=== PATIENT | male | born 1980 | race Caucasian/White ===

== ENCOUNTER 2019-08-24 17:04 | Emergency (ER) | payer MEDICAID ==
[~2019-08-24] VITALS: Ht 182.9 cm; Wt 83.0 kg
[2019-08-24] MEDS ORDERED: normal saline 1000ML IV soln IV ONE (18:35)
[2019-08-24] MEDS ORDERED: acetaminophen 325mg tablet PO STA (18:35)
[2019-08-24] MEDS ORDERED: clindamycin 600mg/D5W 50ml 50 ML IV ONE (18:40)
[2019-08-24 19:15] LABS: BASOPHILS % (AUTO) 0.2 % (0-1); EOSINOPHILS # (AUTO) 0.1 X10'3 (0-0.9); EOSINOPHILS % (AUTO) 0.5 % (0-6); HEMATOCRIT 39.2 % (42.0-52.0); HEMOGLOBIN 13.2 g/dl (14.0-17.9); LYMPHOCYTES % (AUTO) 12.1 % (21-51); MEAN CORPUSCULAR HEMOGLOBIN 28.9 PG (27.0-31.0); MEAN CORPUSCULAR HGB CONC 33.7 g/dL (33.0-36.5); MEAN CORPUSCULAR VOLUME 85.7 FL (78-98); MEAN PLATELET VOLUME 8.2 FL (7.4-10.4); MONOCYTES # (AUTO) 1.3 X10'3 (0-0.9); NEUTROPHILS # (AUTO) 12.8 X10'3 (1.8-7.7); NEUTROPHILS % (AUTO) 79.2 % (42-75); PLATELET COUNT 207 X10'3 (140-440); RED BLOOD COUNT 4.58 X10'6 (4.70-6.10); RED CELL DISTRIBUTION WIDTH 13.2 % (11.5-14.5); WHITE BLOOD COUNT 16.2 X10'3 (4.5-11.0)
[2019-08-24 19:25] LABS: PARTIAL THROMBOPLASTIN TIME 27 SECONDS (22-32)
[2019-08-24 19:29] LABS: CLARITY,URINE CLEAR (Clear); COLOR,URINE YELLOW (Yellow); GLUCOSE, URINE NEGATIVE (Neg); KETONES,URINE TRACE mg/dl (Neg); LEUKOCYTE ESTERASE ,URINE NEGATIVE (Neg); NITRITES, URINE NEGATIVE (Neg); OCCULT BLOOD,URINE NEGATIVE (Neg); PH,URINE 6.5 (4.8-8.0); PROTEIN,URINE TRACE mg/dl (Neg)
[2019-08-24] MEDS ORDERED: iohexol 300mg/ml 100ml inj. ONE (19:34)
[2019-08-24 19:39] LABS: UA COLLECTION TYPE CLN CATCH MIDSTREAM
[2019-08-24 19:40] LABS: ALANINE AMINOTRANSFERASE 26 U/L (12-78); ALBUMIN 3.3 G/DL (3.4-5.0); ALBUMIN/GLOBULIN RATIO 0.8 (1.1-1.5); ALKALINE PHOSPHATASE 77 IU/L (46-116); ANION GAP 10 (8-16); ASPARTATE AMINO TRANSFERASE 17 U/L (10-37); BILIRUBIN,TOTAL 0.7 MG/DL (0.1-1.0); BLOOD UREA NITROGEN 7 MG/DL (7-18); BUN/CREATININE RATIO 7.5 (5.4-32.0); CALCIUM 8.9 MG/DL (8.5-10.1); CHLORIDE 103 MMOL/L (99-107); CREATININE 0.93 MG/DL (0.60-1.10); GLUCOSE 105 MG/DL (70-104); POTASSIUM 4.1 MMOL/L (3.5-5.1); SODIUM 138 MMOL/L (135-145); TOTAL CARBON DIOXIDE 25.3 MMOL/L (24-32); TOTAL PROTEIN 7.6 G/DL (6.4-8.2); eGFR 90 ML/MIN
[2019-08-24 19:50] LABS: BACTERIA,URINE NONE SEEN /HPF (Neg); HYALINE CASTS 0-3 /LPF (NEGATIVE); MUCUS STRANDS FEW /LPF (Neg); RBC,URINE NONE SEEN /HPF (0-2); SQUAMOUS EPITHELIAL CELL,UR FEW /LPF (FEW); WBC,URINE 0-4 /HPF (0-4)
--- NOTE | 2019-08-24 20:15 | NUR ---
pt off to ct
--- NOTE | 2019-08-24 20:26 | NUR ---
pt back from ct rapid strep sent to lab
[2019-08-24] MEDS ORDERED: dexamethasone sod phosphate 10mg/ml inj IV STA (21:09)
[2019-08-24] MEDS ORDERED: LIDOcaine Viscous 15ml cup MM PRN (21:10)
--- NOTE | 2019-08-24 21:46 | NUR ---
LUIS ANTONIO DEGROOT AND DR TEAGUE AT BEDSIDE TO DRAIN PT PERITONSILLAR ABCESS.
--- NOTE | 2019-08-24 21:46 | NUR ---
Maribeth carter in ED - 08/24/19 at [address] riley at bed to drain tooth abcess. oral lidocaine appplied prior to drainage plan of care reviewed and updated.
[2019-08-24] MEDS ORDERED: CLIN300C53 PO (21:55)
[2019-08-24] MEDS ORDERED: PRED20TA PO (21:55)
--- NOTE | 2019-08-24 22:00 | NUR ---
PT STATES THAT HIS MOUTH FEELS MUCH BETTER
[2019-08-24 22:58] VITALS: BP 119/75
== END 2019-08-24 22:50 | disposition home or self-care (01) ==
LOC: ER 17:05
DX: J36 Peritonsillar abscess (principal); K02.9 Dental caries, unspecified; F17.200 Nicotine dependence, unspecified, uncomplicated; Z59.0 Homelessness; Z56.0 Unemployment, unspecified; Z79.899 Other long term (current) drug therapy
CPT/HCPCS: 36415; 42700; 70491; 71045; 80053; 81001; 83605; 84145; 85025; 85610; 85730; 87040; 87880; 93005; 96365; 96375; 99284; J1100; J7030; J7040; Q9967; J3490